=== PATIENT | male | born 1945 | race Caucasian/White ===

== ENCOUNTER 2019-03-01 09:49 | Day surgery (SDC) | payer MEDICARE ==
[~2019-03-01 09:49] MED LIST: ACET325; ACET500 PO; ALEVE220 MG; CHOL10002; CHOL10002 PO; CIPR500 PO; CYCL10 PO; Cardura8 MG PO; DOXA4 PO; Doxazosin Mesyla8 MG PO; FINA5 PO; HYDR1TAB94 PO; MELO7.5 PO; Miralax17 GM PO; OXYC5 PO; PRED10 PO; Percocet 5-3251 EACH PO; SENN187 PO; TAMS.4ER; TRIM100; TRIM100 PO
--- NOTE | 2019-03-01 11:44 | NUR ---
BP REMAINS 184/106. PT DENIES PAIN OR ANXIETY. PT STATES THAT HE HAS NO PRIOR HISTORY OF HYPERTENSION. PT DOES NOT HAVE A PRIMARY CARE PROVIDER AT THIS TIME. PT ENCOURAGED TO SEEK PRIMARY CARE PROVIDER ANNIKA AND FOLLOW UP ON HIGH BLOOD PRESSURE. PT INSTRUCTED TO SEEK MEDICAL ATTENTION IMMEDIATELY IF HE DEVELOPS HEADACHE OR CHEST PAIN. POST EPIDURAL STEROID INJECTION DISCHARGE INSTRUCTIONS GIVEN. PT VERBALIZED UNDERSTANDING. PT DISCHARGED TO HOME, OUT VIA WHEELCHAIR WITH DISCHARGE INSTRUCTIONS AND BELONGINGS ON HAND.
== END 2019-03-01 11:55 | disposition home or self-care (01) ==
LOC: ORSCMMR 09:49 → ORD 11:00 → ORSCMMR 11:00
PROVIDERS: Orthopaedic Surgery
PROC: 3E0R33Z Introduction of Anti-inflammatory into Spinal Canal, Percutaneous Approach (ICD-10-PCS; principal; 2019-03-01 11:00)
DX: M54.16 Radiculopathy, lumbar region (principal); M48.062 Spinal stenosis, lumbar region with neurogenic claudication; E78.5 Hyperlipidemia, unspecified; Z87.891 Personal history of nicotine dependence; Z79.899 Other long term (current) drug therapy
CPT/HCPCS: J1040

== ENCOUNTER → 2023-06-16 | Outpatient (CLI) | payer MEDICARE, OTHER ==
[2023-06-16 12:14] LABS: Source, Urine Clean Catch
[2023-06-16 13:19] LABS: Appearance, Urine Cloudy (Clear); Bilirubin, Urine Neg (Neg); Blood, Urine 3+ (Neg); Glucose Qualitative, Urine Neg (Neg); Ketones, Urine Neg (Neg); Leukocyte Esterase, Urine 3+ (Neg); Nitrite, Urine Neg (Neg); Protein, Urine 2+ (Neg); Specific Gravity, Urine 1.005 (1.003-1.022); Urobilinogen, Urine NORM (Normal)
[2023-06-16 13:31] LABS: Color, Urine Pale Yellow (P-Yellow)
[2023-06-16 13:32] LABS: Bacteria Many /hpf; Squamous Epithelial Cells Not Seen /hpf (Few); White Blood Cells, Urine TNTC /hpf (0-5)
== END ==
LOC: LAB 12:12 → LAB SHORT 12:12
PROVIDERS: Hospitalist
DX: I12.9 Hypertensive chronic kidney disease with stage 1 through stage 4 chronic kidney disease, or unspecified chronic kidney disease (principal); N18.4 Chronic kidney disease, stage 4 (severe)
CPT/HCPCS: 81001; 87077; 87086; 87186

== ENCOUNTER → 2024-03-23 | Outpatient (CLI) | payer MEDICARE, OTHER ==
[2024-03-23 17:07] LABS: Source, Urine Voided
[2024-03-23 18:48] LABS: Appearance, Urine Cloudy (Clear); Bilirubin, Urine Neg (Neg); Blood, Urine 3+ (Neg); Glucose Qualitative, Urine Neg (Neg); Ketones, Urine Neg (Neg); Leukocyte Esterase, Urine 3+ (Neg); Nitrite, Urine Neg (Neg); Protein, Urine 3+ (Neg); Urobilinogen, Urine NORM (Normal)
[2024-03-23 19:08] LABS: Color, Urine Pale Yellow (P-Yellow)
[2024-03-23 19:09] LABS: Red Blood Cells, Urine TNTC /hpf (0-2); White Blood Cells, Urine TNTC /hpf (0-5)
[2024-03-23 19:11] LABS: Amorphous Mod (0-Heavy); Bacteria Many /hpf; Squamous Epithelial Cells Rare /hpf (Few)
== END | disposition home or self-care (01) ==
LOC: LAB 17:04 → LAB SHORT 17:04
PROVIDERS: Hospitalist
DX: N18.5 Chronic kidney disease, stage 5 (principal)
CPT/HCPCS: 81001; 87077; 87086; 87186

== ENCOUNTER 2024-08-30 10:38 | Day surgery (SDC) | payer MEDICARE, OTHER ==
[~2024-08-30] VITALS: Ht 170.2 cm; Wt 56.0 kg
[~2024-08-30 10:38] MED LIST changes: +CALC.25 PO; +MIRT15 PO; +SODBIC650 PO; +TAMS.4ER PO; +Vitamin D1000 UNI1 PO
[2024-08-30 11:15] VITALS: BP 147/97
[2024-08-30 11:16] VITALS: BP 149/78
[2024-08-30] MEDS ORDERED: Heparin Sodium 1000 Units/ML 10ML MDV ONE (11:49)
[2024-08-30] MEDS ORDERED: NS 250 ML IV ONE (11:49)
[2024-08-30] MEDS ORDERED: NS 500 ML IV ONE (11:59)
[2024-08-30] MEDS ORDERED: FentaNYL Citrate 50 MCG/ML 2 ML Injection ONE (11:59)
[2024-08-30] MEDS ORDERED: Midazolam HCl 1MG / ML 2ML Vial ONE (11:59)
[2024-08-30 12:58] VITALS: BP 123/74
[2024-08-30 13:00] VITALS: BP 142/76
--- NOTE | 2024-08-30 13:10 | NUR ---
PT VERBALIZES UNDERSTANDING WRITTEN AND VERBAL INSTRUCTIONS. DENIES QUESTIONS OR CONCERNS. DR RICCI IN ROOM DISCUSSING PLAN OF CARE. PT IV DC'D. CATH INTACT. PRESSURE DSG APPLIED. NO BLEEDING NOTED. VSS. PT DRESSES SELF WITHOUT DIFF. PT DC TO HOME VIA S/O
== END 2024-08-30 13:35 | disposition home or self-care (01) ==
LOC: MHTC 10:38
DX: N18.6 End stage renal disease (principal); E78.5 Hyperlipidemia, unspecified; M81.0 Age-related osteoporosis without current pathological fracture; Z79.899 Other long term (current) drug therapy; Z87.891 Personal history of nicotine dependence; Z88.0 Allergy status to penicillin; I12.9 Hypertensive chronic kidney disease with stage 1 through stage 4 chronic kidney disease, or unspecified chronic kidney disease; R94.5 Abnormal results of liver function studies
CPT/HCPCS: 36415; 76937; 80069; 80074; 85025; 86480; 99152; C1750; C1769; C1894; J1644; J2250; J3010; J7040; J7050

== ENCOUNTER 2024-10-04 12:20 | Emergency (ER) | payer MEDICARE, OTHER ==
[~2024-10-04] VITALS: Ht 170.2 cm; Wt 55.8 kg
[2024-10-04 12:58] LABS: BASOPHILS ABSOLUTE AUTO 0.06 K/mm3 (0.00-0.23); BASOPHILS PERCENT AUTO 1 % (0-2); EOSINOPHILS ABSOLUTE AUTO 0.07 K/mm3 (0.00-0.68); EOSINOPHILS PERCENT AUTO 1 % (0-6); Hematocrit 29.2 % (37.0-53.0); Hemoglobin 9.5 g/dL (13.5-17.5); IMMATURE GRAN ABSOLUTE AUTO 0.17 K/mm3 (0.00-0.10); IMMATURE GRAN PERCENT AUTO 1 % (0-1); LYMPHOCYTES ABSOLUTE AUTO 1.42 K/mm3 (0.84-5.20); LYMPHOCYTES PERCENT AUTO 12 % (21-46); MONOCYTES ABSOLUTE AUTO 0.55 K/mm3 (0.16-1.47); MONOCYTES PERCENT AUTO 5 % (4-13); Mean Corpuscular HGB 33.3 pg (26.0-34.0); Mean Corpuscular HGB Conc 32.5 g/dL (31.5-36.5); Mean Corpuscular Volume 103 fL (80-100); Mean Platelet Volume 9.4 fL (9.1-12.4); NEUTROPHILS ABSOLUTE AUTO 9.92 K/mm3 (1.96-9.15); NEUTROPHILS PERCENT AUTO 81 % (41-73); Platelet Count 255 K/mm3 (150-400); RDW Coefficient Variation 11.8 % (11.7-14.2); RDW Standard Deviation 44.2 fL (35.1-46.3); Red Blood Cell Count 2.85 M/mm3 (4.30-5.90); White Blood Cell Count 12.19 K/mm3 (4.00-11.30)
[2024-10-04 14:17] LABS: Albumin/Globulin Ratio 0.8 (0.8-1.8); Bilirubin, Total 0.4 mg/dL (0.1-1.0); Bun/Creatinine Ratio 8.9 (12.0-20.0); Calcium, Blood 8.7 mg/dL (8.5-10.1); Creatinine, Blood 4.71 mg/dL (0.60-1.20); Globulin, Blood 3.9 g/dL (2.2-4.0); Potassium, Blood 4.4 mmol/L (3.5-5.5); Total Protein, Blood 6.9 g/dL (6.4-8.2)
[2024-10-04 15:26] LABS: Source, Urine Clean Catch
[2024-10-04 15:31] LABS: Appearance, Urine Cloudy (Clear); Bilirubin, Urine Neg (Neg); Blood, Urine 4+ (Neg); Glucose Qualitative, Urine Neg (Neg); Ketones, Urine Neg (Neg); Leukocyte Esterase, Urine 3+ (Neg); Nitrite, Urine Neg (Neg); Protein, Urine 3+ (Neg); Urobilinogen, Urine NORM (Normal)
[2024-10-04 15:35] LABS: CORONAVIRUS COVID-19 AG Negative (NEGATIVE); INFLUENZA A AG Negative (NEGATIVE); INFLUENZA B AG Negative (NEGATIVE)
[2024-10-04 15:37] LABS: Color, Urine Pale Yellow (P-Yellow)
[2024-10-04 15:39] LABS: White Blood Cells, Urine TNTC /hpf (0-5)
[2024-10-04 15:40] LABS: Bacteria Many /hpf; Squamous Epithelial Cells Rare /hpf (Few); Transitional Epithelial Cells Rare /hpf (0-Rare)
[2024-10-04 16:03] VITALS: BP 125/81
== END 2024-10-04 17:13 | disposition home or self-care (01) ==
LOC: ER 12:20
PROVIDERS: Student in an Organized Health Care Education/Training Program
DX: R53.1 Weakness (principal); R42 Dizziness and giddiness; S50.311A Abrasion of right elbow, initial encounter; N18.9 Chronic kidney disease, unspecified; F17.200 Nicotine dependence, unspecified, uncomplicated; Z99.2 Dependence on renal dialysis; Z88.0 Allergy status to penicillin; Z79.899 Other long term (current) drug therapy; W19.XXXA Unspecified fall, initial encounter
CPT/HCPCS: 70450; 71046; 80053; 81001; 85025; 87086; 87428-QW; 93005; 93010; 99285-25

== ENCOUNTER 2024-11-24 09:13 | Day surgery (SDC) | payer MEDICARE, OTHER ==
[~2024-11-24] VITALS: Ht 170.2 cm; Wt 57.6 kg
[~2024-11-24 09:13] MED LIST changes: +MIDO5
[2024-11-24 09:45] VITALS: BP 188/92
[2024-11-24] MEDS ORDERED: NS 1,000 ML IV ONE ×2 (10:54→10:56)
[2024-11-24] MEDS ORDERED: Heparin Sodium 1000 Units/ML 10ML MDV ONE ×2 (10:54→10:56)
[2024-11-24] MEDS ORDERED: Lidocaine HCl 2% 20 ML MDV ONE (10:54)
[2024-11-24] MEDS ORDERED: Nitroglycerin 2 MG/20 ML BTL ONE (10:55)
[2024-11-24] MEDS ORDERED: Midazolam HCl 1MG / ML 2ML Vial ONE ×2 (10:56→11:49)
[2024-11-24] MEDS ORDERED: FentaNYL Citrate 50 MCG/ML 2 ML Injection ONE ×2 (10:56→11:50)
--- NOTE | 2024-11-24 12:48 | NUR ---
ARRIVED FROM BELT CHANGER, FISTULA INTACT TO RIGHT ARM/AC AREA, GOOD THRILL/BRUIT NOTED, LOCALIZED, NO PAIN OR DISCOLORATION, NO EXCESSIVE THRILL/BRUIT/SWELLING OR CONCERNS AT PRESENT. GOOD PULSES DISTAL/PROXIMAL. VSS. DENIES NEEDS. D/C PENDING OTHERWISE, RESTING.
[2024-11-24 13:00] VITALS: BP 141/79
[2024-11-24] MEDS ORDERED: Clopidogrel Bisulfate 75 MG Tab PO ONE (13:10)
[2024-11-24] MEDS ORDERED: Clopidogrel Bisulfate 75 MG Tab ONE (13:11)
[2024-11-24 13:15] VITALS: BP 149/77
[2024-11-24] MEDS ORDERED: CLOP75 PO (13:27)
[2024-11-24 13:30] VITALS: BP 150/84
--- NOTE | 2024-11-24 14:02 | NUR ---
REVIEWED DISCHARGE INSTRUCTIONS AND S/SX TO WATCH OUT FOR WITH PATIENT, DISCUSS F/U APPOINTMENTS WITH PATIENT AND ADDING PLAVIX, DISCUSSED MED LIST UPDATED, DIALYSIS F/U WELL, PATIENT AWARE OF LOCATIONS FOR F/U APPTS PER PATIENT. VSS, IV REMOVED, ASSISTED TO GET DRESSED. PATIENT VOIDED BED EARLIER, DECLINED ALL INTERVENTIONS, STATED "I'LL JUST DEAL WITH IT WHEN I GET HOME", DRESSED AND TAKEN TO LOBBY BY W/C, STATES "I'LL WAIT HERE FOR MY , SHE'S FIVE MINUTES AWAY", DENIED WANTING THIS RN TO WAIT WITH HIM, LEFT IN LOBBY AT 1350.
== END 2024-11-24 13:50 | disposition home or self-care (01) ==
LOC: MHTC 09:13
DX: I12.0 Hypertensive chronic kidney disease with stage 5 chronic kidney disease or end stage renal disease (principal); N18.6 End stage renal disease; N40.0 Benign prostatic hyperplasia without lower urinary tract symptoms; E78.5 Hyperlipidemia, unspecified; M81.0 Age-related osteoporosis without current pathological fracture; Z87.891 Personal history of nicotine dependence; Z79.899 Other long term (current) drug therapy; Z88.0 Allergy status to penicillin
CPT/HCPCS: 36836; 76937; 99152; 99153; A9270; C1725; C1769; C1889; J1644; J2250; J3010; J7030